=== PATIENT | female | born 1970 | race Caucasian/White ===

== ENCOUNTER 2016-10-05 08:59 | Emergency (ER) | payer OTHER ==
[~2016-10-05] VITALS: Ht 172.7 cm; Wt 86.2 kg
[2016-10-05 09:22] VITALS: BP 167/90
--- NOTE | 2016-10-05 10:00 | ED NECK/BACK PAIN COMPLAINT ---
History of Present Illness General Chief Complaint: Neck/Upper Back Pain/Injury Stated Complaint: NECK AND LEFT SHOULDER PAIN Source: patient, old records Exam Limitations: no limitations Vital Signs & Intake/Output Vital Signs & Intake/Output Vital Signs Date Time Temp Pulse Resp B/P Pulse O2 O2 Flow FiO2 Ox Delivery Rate 10/05 0922 97.2 100 20 167/90 98 Room Air Allergies Coded Allergies: No Known Allergies (10/05/16) Reconcile Medications Oxycodone HCl/Acetaminophen (Percocet 5-325 MG Tablet) 5 MG-325 MG TABLET 1-2 TAB PO Q6P PRN PAIN Tizanidine HCl (Zanaflex) 4 MG CAPSULE 1 CAP PO TID PRN MUSCLE SPAMS Triage Note: TRIAGE: PT TO ER C/C PAIN FROM L NECK INTO SHOULDER. ONSET 09/23 JUST IN THE NECK AND SINCE ONSET HAS PROGRESSED TO THE SHOULDER. [facility] TO [facility]/30 AND WAS GIVEN LIDOCAINE PATCH, MEDROL DOSE PACK AND CYCLOBENAZPRINE. CURRENTLY ON DAY OF STEROIDS. HAS FELT NO RELIEF AND PAIN WORSENS. Triage Nurses Notes Reviewed? yes HPI: Patient presents complaining of sharp stabbing achy pain in the left side of her neck that radiates into her left shoulder. The pain is been constipated the past few weeks. No known trauma. The pain increases with movement of her neck. There is no sensory loss. The patient states that it feels kind of like a herniated disc that she has in her lower back. Patient has been seen by a walk in center and had a negative x-ray. Patient was prescribed muscle relaxers and steroids both of which did not help. Patient does not have a doctor to follow- up with. The pain remains at 10 out of 10 since she comes in for evaluation. Patient denies any fever or chills. There is no weakness or numbness. There is no headache. There is no blurry vision. Past History Travel History Traveled to [place] past 21 day No Medical History Any Pertinent Medical History? 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 No Review of Systems Review of Systems Constitutional: Reports: no symptoms. Respiratory: Reports: no symptoms. Cardiovascular: Reports: no symptoms. Gastrointestinal/Abdominal: Reports: no symptoms. Musculoskeletal: Reports: see HPI, neck pain. Neurological/Psychological: Reports: no symptoms. Physical Exam Physical Exam General Appearance: well developed/nourished, alert, awake, moderate distress Eyes: Bilateral: PERRL, EOMI. Neck: muscle spasm, tender lateral, no midline tenderness Respiratory: normal breath sounds, chest non-tender, no respiratory distress, lungs clear Cardiovascular: regular rate/rhythm, normal peripheral pulses Gastrointestinal: normal bowel sounds, soft, non-tender, no organomegaly Back: normal inspection, normal range of motion, no vertebral tenderness Extremities: non-tender, normal range of motion Neurologic/Psych: no motor/sensory deficits, awake, alert, oriented x 3, normal gait, normal mood/affect Progress Differential Diagnosis: C spine injury, herniated disc, myofascial strain Plan of Care: PAIN CONTROL AND FOLLOW UP Departure Departure Disposition: HOME OR SELF CARE Condition: Stable Clinical Impression Primary Impression: Neck pain Referrals: [facility]ERT[facility] ROSE,SUSANNAH Adams PATIENT HAS NO PRIMARY CARE DR (PCP/Family) Additional Instructions: USE MOIST HEAT FOLLOW UP WITH DR. TOSCANO (ORTHOPEDICS) AND/OR DR. OSEI (NEURSURGERY) FOR FURTHER EVALUATION AND TREATMENT Departure Forms: Customer Survey General Discharge Information Prescriptions: Current Visit Scripts Tizanidine HCl (Zanaflex) 1 CAP PO TID PRN MUSCLE SPAMS #30 CAP Oxycodone HCl/Acetaminophen (Percocet 5-325 MG Tablet) 1-2 TAB PO Q6P PRN PAIN #20 TAB
[2016-10-05] MEDS ORDERED: PERCOCET 5-3251 EACH PO (10:18)
[2016-10-05] MEDS ORDERED: ZANAFLEX4 M2 PO (10:18)
== END 2016-10-05 10:30 ==
LOC: ERH 08:59
DX: M54.2 Cervicalgia (principal)